=== PATIENT | male | born 1940 | race Caucasian/White ===

== ENCOUNTER → 2017-07-23 | Outpatient (CLI) | payer OTHER, MEDICARE ==
[~2017-07-23] MED LIST: ACETAMINOPHEN325 M1 PO; B-12500 MCG PO; BACTRIM 400-801 EACH PO; CELLCEPT500 MG PO; FOLIC ACID 1 MG1 M1 PO; HYDROCODON-ACE1 EAC7 PO; LIPITOR40 MG PO; LOPRESSOR 50 MG50 M1 PO; MAGNESIUM GLUC500 M1 PO; NORVASC 5 MG TAB5 MG PO; PEPCID40 MG PO; PREDNISONE 5 MG5 MG PO; PROGRAF1 MG PO; VITAMIN B-625 MG PO
== END ==
LOC: MRI 09:22
DX: G45.9 Transient cerebral ischemic attack, unspecified (principal); J84.10 Pulmonary fibrosis, unspecified; R42 Dizziness and giddiness

== ENCOUNTER → 2017-10-11 | Outpatient (CLI) | payer OTHER, MEDICARE ==
[~2017-10-11] MED LIST changes: +LOPRESSOR50 PO; +PLAVIX 75 MG TA75 M1 PO
[2017-10-11 10:08] LABS: CREATININE 1.6 mg/dL (0.7-1.3)
== END ==
LOC: LABMALL 09:33
PROVIDERS: Surgery
DX: I71.4 Abdominal aortic aneurysm, without rupture (principal); I70.1 Atherosclerosis of renal artery; Z85.828 Personal history of other malignant neoplasm of skin

== ENCOUNTER 2017-11-18 11:14 | Inpatient (IN) | payer OTHER, MEDICARE ==
[~2017-11-18] VITALS: Ht 170.2 cm; Wt 91.6 kg
--- NOTE | ~2017-11-18 | EKG ---
[place] [address] [facility] [place] [address] ELECTROCARDIOGRAM REPORT Name: TEJAL MITCHELL Room #: 209-[facility] IN M.R.#: [id number] Admission: 11/18/17 Attend Phys: Krishan Villasenor MD Discharge: 11/21/17 Date of : 38 Report #: [id number] THIS REPORT FOR: //name// [facility] Test Date: 2017-11-20 Test Time: 22:11:18 Pat Name: TEJAL MITCHELL Department: Room: 209 P Gender: M Porter Baggage: mfra : 1940 Requested By: Trell Garrett Order Number: [id number] MD: Cristopher Xiao Measurements Intervals [place] Rate: 80 P: 44 AR: 178 QRS: 28 QRSD: 97 T: -5 QT: 385 QTc: 445 Interpretive Statements Sinus rhythm Nonspecific ST segment abnormality Compared to ECG 02/20/2012 06:34:33 No significant change was found Electronically Signed On 11-21-2017 15:30:37 CURRICULUM SUPERVISOR by Cristopher Xiao [email or web address] <ELECTRONICALLY SIGNED> By: Cristopher Xiao MD, [facility] 11/21/17 153 10 10 Cristopher Xiao MD, [facility] /EPI
--- NOTE | ~2017-11-18 | EKG ---
[place] [address] [facility] [place] [address] ELECTROCARDIOGRAM REPORT Name: TEJAL MITCHELL Room #: 209-[facility] IN M.R.#: [id number] Admission: 11/18/17 Attend Phys: Krishan Villasenor MD Discharge: 11/21/17 Date of : 39 Report #: [id number] THIS REPORT FOR: //name// [facility] Test Date: 2017-11-19 Test Time: 18:01:54 Pat Name: TEJAL MITCHELL Department: Room: 209 P Gender: M Medical Imaging Tech: KAYE : 1940 Requested By: Krishan Villasenor Order Number: [id number] MD: Cristopher Xiao Measurements Intervals [place] Rate: 86 P: 44 [place]: 177 QRS: 26 QRSD: 98 T: -4 QT: 376 QTc: 450 Interpretive Statements Sinus rhythm Ventricular premature complex Compared to ECG 02/20/2012 06:34:33 Ventricular premature complex(es) now present Electronically Signed On 11-21-2017 15:21:31 TUTORING MANAGER by Cristopher Xiao [email or web address] <ELECTRONICALLY SIGNED> By: Cristopher Xiao MD, [facility] 11/21/17 152 00 00 Crisotpher Xiao MD, [facility] /EPI
--- NOTE | ~2017-11-18 | EKG ---
[address] [place] [address] ELECTROCARDIOGRAM REPORT Name: TEJAL MITCHELL Room #: 209-[facility] IN M.R.#: [id number] Admission: 11/18/17 Attend Phys: Krishan Villasenor MD Discharge: 11/21/17 Date of : 39 Report #: [id number] THIS REPORT FOR: //name// [facility] Test Date: 2017-11-19 Test Time: 22:25:44 Pat Name: TEJAL MITCHELL Department: Room: 209 P Gender: M Juke Box Mechanic: mfra : 1940 Requested By: Krishan Villasenor Order Number: [id number] MD: Cristopher Xiao Measurements Intervals [place] Rate: 107 P: 46 TN: 166 QRS: 23 QRSD: 93 T: -22 QT: 353 QTc: 471 Interpretive Statements Sinus tachycardia Borderline repolarization abnormality Compared to ECG 02/20/2012 06:34:33 premature ventricular complexes are no longer present Electronically Signed On 11-21-2017 15:24:15 GUIDANCE SECRETARY by Cristopher Xiao [email or web address] <ELECTRONICALLY SIGNED> By: Cristopher Xiao MD, [facility] 11/21/17 1524 2225 24 Cristopher Xiao MD, [facility] /EPI
--- NOTE | ~2017-11-18 | HC ---
[facility] [place] [address] CONSULTATION Name: TEJAL MITCHELL Room #: 209-[facility]..#: [id number] Admission: 11/18/17 Attend Phys: Krishan Villasenor MD Discharge: 11/21/17 Date of : 39 Report #: [id number] THIS REPORT FOR: //name// CC: Krishan Villasenor DATE OF SERVICE: 11/19/2017 REASON FOR CONSULTATION: Elevated creatinine. HISTORY OF PRESENT ILLNESS: A 77-year-old gentleman, 11 years ago had a left lung transplant for pulmonary fibrosis, idiopathic. Since that time, his creatinine has gradually risen. He is on 3-drug immunosuppression including tacrolimus, mycophenolate, and prednisone. He has had no decreased urinary stream or prostate issues, he knows of no other renal issues at the present time. The patient was admitted at this time with a bright red blood per rectum, he has had several bloody stools, he apparently had an arteriogram, possibly had a coil placed, records are not consistent in the computer with information. PAST MEDICAL HISTORY: Vascular disease, particularly an abdominal aortic aneurysm treated with an abdominal aortic stent, 2 different cardiac stents, he has also had a cholecystectomy and history of hypertension. HOME MEDICATIONS: Include tacrolimus 1 mg b.i.d., mycophenolate 750 mg b.i.d., metoprolol tartrate 50 mg b.i.d., amlodipine 5 mg daily, famotidine 40 mg daily, prednisone 5 mg daily, atorvastatin 40 mg daily, magnesium, and Bactrim-DS 1 daily. ALLERGIES: Reported to LEVOFLOXACIN, PENICILLINS, and QUINOLONES. FAMILY HISTORY: Positive for stroke, COPD and ALS. REVIEW OF SYSTEMS: GENERAL: He has been feeling okay. He apparently is somewhat forgetful. EYES: His vision is okay. ENT: Hearing okay. Swallows okay. No mouth ulcers. ENDOCRINE: No diabetes or thyroid disease. RESPIRATORY: No shortness of breath, hemoptysis, or cough. He does have exertional dyspnea. CARDIAC: No angina. He does get some swelling in his legs. GASTROINTESTINAL: He has got the bloody stool without abdominal pain. GENITOURINARY: Good stream without dysuria, hematuria, or stones. NEUROLOGIC: He has been somewhat forgetful. PSYCHIATRIC: No depression or anxiety. [address] [address] CONSULTATION Name: TEJAL MITCHELL Room #: 209-[facility] IN ..#: [id number] Admission: 11/18/17 Attend Phys: Krishan Villasenor MD Discharge: 11/21/17 Date of : 39 Report #: [id number] PHYSICAL EXAMINATION: GENERAL: This is a reasonably well-appearing gentleman, somewhat forgetful with his history. SKIN: Otherwise, unremarkable. SKELETAL: Well developed, well nourished, nonobese. HEENT: Extraocular movements are full. No scleral icterus. Hearing and vision intact. Mucous membranes are moist. Tongue, buccal mucosa benign. NECK: Supple. No carotid bruits. No lymphadenopathy. CHEST: Shows diminished breath sounds at the bases. HEART: Regular. ABDOMEN: Soft and nontender without bruits, masses, or organomegaly. EXTREMITIES: Show trace peripheral edema. ASSESSMENT: 1. Gastrointestinal bleed, appears to have a lower gastrointestinal bleed. He apparently had some coiling done, it is unclear if they found the source of bleeding or not. 2. 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 Nothing much to be done there. 3. Status post lung transplant, on 3-drug immunosuppression. 4. History of hypertension. 5. Peripheral arterial disease, status post abdominal aortic aneurysm stent. 6. Coronary artery disease, status post percutaneous coronary intervention and coronary stents. <ELECTRONICALLY SIGNED> By: Clyde Abad MD 11/24/17 1127 1011 1230 Clyde Abad MD /nt
--- NOTE | ~2017-11-18 | HC ---
[facility] [place] [address] CONSULTATION Name: TEJAL MITCHELL Room #: 209-P [facility] IN ..#: [id number] Admission: 11/18/17 Attend Phys: Krishan Villasenor MD Discharge: 11/21/17 Date of : 39 Report #: [id number] THIS REPORT FOR: //name// CC: Krishan Villasenor DATE OF SERVICE: 11/20/2017 REASON FOR CONSULTATION: Chest discomfort. HISTORY OF PRESENT ILLNESS: This is a very pleasant patient of Dr. Krishan Villasenor, who presented to the Emergency Room with complaints of rectal bleeding. The patient stated it began on the day of admission and had noticed some hematochezia. He does have a prior history of coronary artery disease and is status post left lung transplant. Upon questioning, he denies any actual anginal symptoms similar to what he had prior to his stenting, but states that he had progressive orthopnea and some PND. He stated that he had some shortness of breath that was the reason that brought him into the Emergency Room to begin with. He denied any significant exertional tightness, heaviness or fullness and in fact stated that up until a week or so ago, he was doing quite well with his daily activities. He is on immunosuppressive therapy for his lung transplant, which he had several years ago. No syncope or near syncope. PAST MEDICAL HISTORY: Significant for: 1. 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 2. Hypertension. 3. Coronary artery disease, status post repeated revascularization. 4. Peripheral vascular disease treated percutaneously. 5. Dyslipidemia. 6. Hypertension. MEDICATIONS: Prograf, CellCept, Lopressor, Norvasc, Pepcid, prednisone, Lipitor, magnesium gluconate, and Bactrim. PAST SURGICAL HISTORY: 1. Left lung transplant in 2006. 2. Coronary stents, multiple times, most recent of which was in 09/2016. 3. Abdominal aortic aneurysm coil placed in 2011. SOCIAL HISTORY: The patient does not smoke or consume alcohol. Does not follow a particular exercise regimen or dietary restriction. ALLERGIES: LEVOFLOXACIN, PENICILLIN, QUINOLONES AND TETANUS TOXOID. LABORATORY DATA: Demonstrates an H and H of 13.3 and 39.7 with a platelet count of 214,000. Troponins are 0.06 and 0.04, in decline. [address] [address] CONSULTATION Name: TEJAL MITCHELL Room #: 209-P [facility] IN [facility].#: [id number] Admission: 11/18/17 Attend Phys: Krishan Villasenor MD Discharge: 11/21/17 Date of : 39 Report #: [id number] Electrocardiogram did not demonstrate any acute findings in a sinus mechanism. REVIEW OF SYSTEMS: Except for symptoms previously mentioned and those commensurate with comorbid state, the 10-point review of system is negative. PHYSICAL EXAMINATION: GENERAL: Well-developed, well-nourished male, resting comfortably, in no acute distress. VITAL SIGNS: Noted in the chart. HEENT: Normocephalic, atraumatic. Pupils are equal, round, reactive to light and accommodation. Extraocular muscles are intact. Sclerae and conjunctivae are anicteric. NECK: JVD is normal. Carotid upstrokes are bilaterally symmetrical. No bruits are heard. No thyromegaly. No lymphadenopathy. LUNGS: Demonstrates prolongation of the expiratory phase with end-expiratory wheezes noted. CARDIAC: Demonstrates a regular rhythm. Soft systolic murmur at the apex. No diastolic murmurs are noted. ABDOMEN: Soft, nontender, nondistended. Normal bowel sounds. EXTREMITIES: Without cyanosis, clubbing or edema. Distal pulses are intact. DTR symmetrical. NEUROLOGIC: Cranial nerves 2-12 are grossly normal and symmetrical. PSYCHIATRIC: Alert, oriented with normal affect. SKIN: Warm and dry. IMPRESSION: 1. Dyspnea and orthopnea, multifactorial. He is having some renal issues apparently. There may have been some degree of congestion present. He is currently much improved, although he not diuresed dramatically. I would continue with and multifactorial source of his symptomatology. 2. Coronary artery disease. No real angina. Currently, troponins are decreasing. ECG does not show acute current of injury and in view of this, I am going to just monitor and observe for the present time. 3. Hypertension seems to be adequately controlled on current regimen. Continue to monitor. 4. Peripheral vascular disease, stable. 5. Dyslipidemia. Discussed the [place] [employer] step 1 diet with him. He does voice understanding. We will need to get him copies of the handout at discharge, so we can incorporate that into his daily dietary habits. <ELECTRONICALLY SIGNED> By: Trell Garrett MD 11/26/17 1118 1432 52 Trell Garrett MD /nt
[~2017-11-18 11:14] MED LIST changes: -LOPRESSOR50 PO; -PLAVIX 75 MG TA75 M1 PO
[2017-11-18 11:16] VITALS: BP 142/74
[2017-11-18 12:36] LABS: URINE BILIRUBIN NEGATIVE (Negative); URINE BLOOD NEGATIVE (Negative); URINE CLARITY CLEAR; URINE COLOR YELLOW; URINE GLUCOSE-RANDOM* NEGATIVE (Negative); URINE KETONES NEGATIVE (Negative); URINE LEUKOCYTES NEGATIVE (Negative); URINE NITRITE NEGATIVE (Negative); URINE PROTEIN (DIPSTICK) 1+ (Negative); URINE SPECIFIC GRAVITY 1.025 (1.005-1.035); URINE UROBILINOGEN 0.2 E.U./dl (0.2-1.0)
[2017-11-18 12:38] LABS: ABSOLUTE NEUTROPHILS 9.7 thou/uL (1.4-8.2); BASOPHILS 0.5 % (0.0-2.0); EOSINOPHILS 0.9 % (0.0-3.0); HEMATOCRIT 39.7 % (42.0-52.0); HEMOGLOBIN 13.3 gm/dL (14.0-18.0); LYMPHOCYTES 10.8 % (24.0-44.0); MCH 32.9 pg (26.0-34.0); MCHC 33.5 g/dL (28.0-37.0); MCV 98.3 fL (80.0-100.0); MONOCYTES 5.6 % (1.0-8.0); PLATELET COUNT 214 thou/uL (150-400); POLYS 82.2 % (36.0-66.0); RBC 4.03 mil/uL (4.50-6.00); RDW 13.7 % (10.5-14.5); WBC 11.8 thou/uL (4.0-11.0)
[2017-11-18 12:47] LABS: AMORPHOUS URATES Few /LPF (None Seen); BACTERIA 1-9 Few /HPF (None Seen); CRYSTALS None Seen /LPF (None Seen); SQUAMOUS 4-10 Moderate /LPF (0-3); URINE RBC None Seen /HPF (0-2); URINE WBC None Seen /HPF (0-5)
[2017-11-18 12:49] LABS: APTT 25.4 Seconds (24.5-32.8); PROTIME 10.3 Seconds (9.3-11.4)
[2017-11-18 14:40] VITALS: BP 112/48
[2017-11-18 16:05] VITALS: BP 122/66
[2017-11-18] MEDS ORDERED: PLAVIX 75 MG TA75 M1 PO (16:16)
[2017-11-18] MEDS ORDERED: LOPRESSOR50 PO (16:16)
[2017-11-18 16:29] VITALS: BP 167/83
[2017-11-18 17:46] LABS: HEMOGLOBIN 11.7 gm/dL (14.0-18.0)
[2017-11-18 18:02] VITALS: BP 167/83
[2017-11-18 21:00] VITALS: BP 127/67
[2017-11-18 21:49] LABS: HEMATOCRIT 32.8 % (42.0-52.0); HEMOGLOBIN 11.1 gm/dL (14.0-18.0)
[2017-11-18 21:52] LABS: CALCIUM 7.8 mg/dL (8.5-10.1); CREATININE 1.6 mg/dL (0.7-1.3); POTASSIUM 5.3 mmol/L (3.5-5.1)
[2017-11-18 21:58] LABS: ALBUMIN 2.9 g/dL (3.4-5.0); DIRECT BILIRUBIN 0.1 mg/dL (<0.1-0.3); TOTAL BILIRUBIN 0.4 mg/dL (<0.1-1.0); TOTAL PROTEIN 5.7 g/dL (6.4-8.2)
[2017-11-19 00:25] VITALS: BP 128/58
[2017-11-19 03:00] VITALS: BP 120/64
[2017-11-19 06:17] LABS: HEMATOCRIT 27.4 % (42.0-52.0); HEMOGLOBIN 9.3 gm/dL (14.0-18.0); MCH 33.1 pg (26.0-34.0); MCHC 33.9 g/dL (28.0-37.0); MCV 97.8 fL (80.0-100.0); RBC 2.8 mil/uL (4.50-6.00); RDW 13.7 % (10.5-14.5)
[2017-11-19 06:28] LABS: CALCIUM 7.8 mg/dL (8.5-10.1); CREATININE 1.4 mg/dL (0.7-1.3); POTASSIUM 4.5 mmol/L (3.5-5.1)
[2017-11-19 07:03] VITALS: BP 109/62
[2017-11-19 14:20] VITALS: BP 113/68
[2017-11-19 14:41] VITALS: BP 113/668
[2017-11-19 19:45] VITALS: BP 139/85
[2017-11-20 00:09] VITALS: BP 104/52
[2017-11-20 04:37] VITALS: BP 123/79
[2017-11-20 04:51] LABS: ALBUMIN 2.5 g/dL (3.4-5.0); CALCIUM 7.3 mg/dL (8.5-10.1); CREATININE 1.2 mg/dL (0.7-1.3); PHOSPHORUS 2.5 mg/dL (2.5-4.9); POTASSIUM 4.7 mmol/L (3.5-5.1)
[2017-11-20 07:07] VITALS: BP 131/77
[2017-11-20 08:22] LABS: HEMATOCRIT 24.5 % (42.0-52.0); HEMOGLOBIN 8.4 gm/dL (14.0-18.0); MCH 33.6 pg (26.0-34.0); MCHC 34.1 g/dL (28.0-37.0); MCV 98.5 fL (80.0-100.0); RBC 2.49 mil/uL (4.50-6.00); RDW 13.7 % (10.5-14.5); WBC 5.7 thou/uL (4.0-11.0)
[2017-11-20 11:27] VITALS: BP 116/66
[2017-11-20 12:40] LABS: HEMATOCRIT 27.5 % (42.0-52.0); HEMOGLOBIN 9.4 gm/dL (14.0-18.0)
[2017-11-20 14:59] VITALS: BP 122/67
[2017-11-20 20:40] VITALS: BP 146/75
[2017-11-21 02:45] LABS: CALCIUM 7.7 mg/dL (8.5-10.1); CREATININE 1.4 mg/dL (0.7-1.3); PHOSPHORUS 2.3 mg/dL (2.5-4.9); POTASSIUM 4.4 mmol/L (3.5-5.1)
[2017-11-21 04:06] VITALS: BP 123/78
[2017-11-21 08:00] VITALS: BP 122/54
[2017-11-21 08:49] LABS: HEMATOCRIT 25.8 % (42.0-52.0); HEMOGLOBIN 8.8 gm/dL (14.0-18.0); MCH 33.5 pg (26.0-34.0); MCHC 34.2 g/dL (28.0-37.0); RBC 2.63 mil/uL (4.50-6.00); RDW 14.2 % (10.5-14.5); WBC 6.7 thou/uL (4.0-11.0)
[2017-11-21 09:57] VITALS: BP 122/54
== END 2017-11-21 10:51 | disposition home or self-care (01) | DRG 377 ==
LOC: ER 11:14 → 4E 14:33 → EROBS 14:33 → 4E 16:17 → 2N 11-19 20:02
PROVIDERS: Family Medicine; Internal Medicine Gastroenterology; Internal Medicine Nephrology; Nurse Practitioner
PROC: B4151ZZ Fluoroscopy of Inferior Mesenteric Artery using Low Osmolar Contrast (ICD-10-PCS; 2017-11-19)
PROC: 0DJD8ZZ Inspection of Lower Intestinal Tract, Via Natural or Artificial Opening Endoscopic (ICD-10-PCS; principal; 2017-11-20)
DX: K92.2 Gastrointestinal hemorrhage, unspecified (principal); E43 Unspecified severe protein-calorie malnutrition; N17.9 Acute kidney failure, unspecified; Z94.2 Lung transplant status; I25.10 Atherosclerotic heart disease of native coronary artery without angina pectoris; I12.9 Hypertensive chronic kidney disease with stage 1 through stage 4 chronic kidney disease, or unspecified chronic kidney disease; N18.9 Chronic kidney disease, unspecified; I73.9 Peripheral vascular disease, unspecified; E78.5 Hyperlipidemia, unspecified; R06.01 Orthopnea; F03.90 Unspecified dementia, unspecified severity, without behavioral disturbance, psychotic disturbance, mood disturbance, and anxiety; D72.829 Elevated white blood cell count, unspecified; J84.10 Pulmonary fibrosis, unspecified; Z90.49 Acquired absence of other specified parts of digestive tract; Z95.5 Presence of coronary angioplasty implant and graft; Z88.1 Allergy status to other antibiotic agents; Z88.0 Allergy status to penicillin; Z88.8 Allergy status to other drugs, medicaments and biological substances; Z82.3 Family history of stroke; Z83.6 Family history of other diseases of the respiratory system; Z79.899 Other long term (current) drug therapy; Z28.21 Immunization not carried out because of patient refusal
CPT/HCPCS: 10081; 10084

== ENCOUNTER → 2019-03-03 | Outpatient (CLI) | payer OTHER, MEDICARE ==
[~2019-03-03] MED LIST changes: +LOPRESSOR50 PO; +PLAVIX 75 MG TA75 M1 PO
[2019-03-03 13:06] LABS: ABSOLUTE NEUTROPHILS 5.9 thou/uL (1.4-8.2); BASOPHILS 0.8 % (0.0-2.0); EOSINOPHILS 1.1 % (0.0-3.0); HEMOGLOBIN 11.8 gm/dL (14.0-18.0); LYMPHOCYTES 14.6 % (24.0-44.0); MCH 31.6 pg (26.0-34.0); MCHC 32.9 g/dL (28.0-37.0); MCV 96.2 fL (80.0-100.0); MONOCYTES 7.9 % (1.0-8.0); PLATELET COUNT 201 thou/uL (150-400); POLYS 75.6 % (36.0-66.0); RBC 3.74 mil/uL (4.50-6.00); RDW 14.2 % (10.5-14.5); WBC 7.9 thou/uL (4.0-11.0)
[2019-03-03 13:21] LABS: ALBUMIN 3.4 g/dL (3.4-5.0); CALCIUM 8.5 mg/dL (8.5-10.1); POTASSIUM 5.5 mmol/L (3.5-5.1); TOTAL BILIRUBIN 0.3 mg/dL (<0.1-1.0); TOTAL PROTEIN 6.6 g/dL (6.4-8.2)
== END ==
LOC: RAD 12:34
PROVIDERS: Family Medicine
DX: J84.9 Interstitial pulmonary disease, unspecified (principal); J43.1 Panlobular emphysema; I11.0 Hypertensive heart disease with heart failure; I50.22 Chronic systolic (congestive) heart failure; G89.29 Other chronic pain; M54.5 Low back pain; R53.82 Chronic fatigue, unspecified

== ENCOUNTER 2019-05-02 10:33 | Inpatient (IN) | payer OTHER, MEDICARE ==
[~2019-05-02] VITALS: Ht 172.7 cm; Wt 81.2 kg
[2019-05-02 11:13] VITALS: BP 155/78
[2019-05-02] MEDS ORDERED: TACROLIMUS0.5 MG PO (11:58)
[2019-05-02] MEDS ORDERED: MAGNESIUM GLUCO30 MG PO (11:59)
[2019-05-02] MEDS ORDERED: VITAMIN B-121000 MC3 PO (12:02)
[2019-05-02] MEDS ORDERED: VITAMIN B-6100 MG PO (12:03)
[2019-05-02] MEDS ORDERED: BACTRIM DS TAB1 EACH PO (12:05)
[2019-05-02] MEDS ORDERED: AZITHROMYCIN 2250 MG PO (12:06)
[2019-05-02] MEDS ORDERED: DIGOXIN250 MCG PO (12:07)
[2019-05-02] MEDS ORDERED: ZOLOFT25 MG PO (12:08)
[2019-05-02] MEDS ORDERED: KEFLEX500 M1 PO (12:12)
[2019-05-02 15:20] LABS: HEMOGLOBIN 10.3 gm/dL (14.0-18.0); MCH 32.4 pg (26.0-34.0); MCHC 33.2 g/dL (28.0-37.0); MCV 97.5 fL (80.0-100.0); RBC 3.18 mil/uL (4.50-6.00); RDW 14.8 % (10.5-14.5); WBC 7.1 thou/uL (4.0-11.0)
[2019-05-02 15:35] LABS: ALBUMIN 3.4 g/dL (3.4-5.0); CALCIUM 9.1 mg/dL (8.5-10.1); CREATININE 2.2 mg/dL (0.7-1.3); POTASSIUM 4.8 mmol/L (3.5-5.1); TOTAL BILIRUBIN 0.5 mg/dL (<0.1-1.0); TOTAL PROTEIN 6.9 g/dL (6.4-8.2)
[2019-05-02 15:36] VITALS: BP 122/82
--- NOTE | 2019-05-02 19:46 | NUR ---
Patient direct admission from Dr. Villasenor's office approx. 11 am this morning. Patient has dementia and is only oriented to person. signed all consents including form stating hospital telemetry concerns. DPOA and Advance directive paperwork are photocopied and in the physical chart. Dr. Villasenor reminded to put a code status order in this afternoon. An order was obtained today for full code as the patient's said she would like all measures taken. An order also obtained that no IV was necessary. Patient on 2LNC (baseline) PRN. Patient afib on the monitor. Patient refused to eat dinner. Patient's stated he has lost some weight the past couple months and has had a poor appetite. Fall precautions in place.
[2019-05-02 19:55] VITALS: BP 156/88
[2019-05-02 23:28] VITALS: BP 155/95
[2019-05-03 05:00] VITALS: BP 156/76
--- NOTE | 2019-05-03 06:39 | NUR ---
PATIENT IS PROGRESSING IN HIS CARE PLAN. VITAL SIGNS STABLE WITH PATIENT NOT COMPLAINING, NOR NURSE PERCEIVING, ANY PAIN OR NAUSEA. ORIENTED TO SELF, PATIENT WAS IMPULSIVE BUT RE DIRECTABLE. BREATHING STABLE ON OXYGEN EVIDENCED BY SPOT OXYGENATION CHECKS. CONTROLLED ATRIAL FIB THROUGHOUT SHIFT. NURSE ATTEMPTED TO COLLECT ALL URINE FROM PATIENT ALTHOUGH HE WAS INCONTINENT ONCE. UP MULTIPLE TIMES TO THE BEDSIDE COMMODE WITH ASSISTANCE INCIDENT FREE. CONTINUE PLAN OF CARE.
[2019-05-03 07:43] VITALS: BP 155/105
--- NOTE | 2019-05-03 10:48 | NUR ---
Nutrition: pt admit with bilateral leg weakness, dementia. Seen due to high risk screen for poor intake/weight loss. Spoke mainly with . States weight down 6# or 3% over the course of one year-not significant. Either eats very well or 0% here and at home. Drinks one ensure daily, will offer at lunch so pt can have as snack. Explained menu ordering but reports no preferences and intake varies due to dementia. No wasting observed. Consider low risk.
[2019-05-03 11:20] VITALS: BP 98/72
[2019-05-03 15:00] VITALS: BP 152/67
--- NOTE | 2019-05-03 16:03 | NUR ---
ASSESSMENT: CM REVIEWED CHART AND MET WITH PATIENT AT THE BEDSIDE. PT WAS ADMITTED WITH WEAKNESS/FALLS. PTS WAS ALSO AT THE BEDSIDE. PT LIVES IN A HOUSE WITH HIS . PT HAS A COUPLE STEPS TO ENTER THE HOME AND NO STEPS ONCE INSIDE. PT HAS A WALKER AT HOME BUT REPORTS HE DOES NOT LIKE USING IT AND DOES NOT USE IT ALL THE TIME. PT HAS A WALK-IN SHOWER WITH A BUILT IN BENCH AND GRAB BAR. PT HAS HAD HH IN THE PAST BUT UNSURE THE AGENCY. CM DISCUSSED ROLE AND POSSIBLE RECOMMENDATIONS FOR SNF. PT HAS NOT BEEN TO A SNF IN THE PAST. CM PROVIDED A SNF LIST FOR PATIENT AND TO REVIEW. CM WILL CONTINUE TO FOLLOW TO ASSIST NEEDED.
--- NOTE | 2019-05-03 17:01 | NUR ---
Assumed care approx. 0700 this AM. Oriented to person, impulsive at times, and forgetful within minutes of directions given. Patient on and off 2LNC per patient comfort. No signifant telemetry changes noted, afib rhythm continues. Nutritional intake is still poor, but the patient's continues to encourage supplement intake. Urine collected for 24 hr lab specimen when available, but patient has been incontinent most of the shift. Patient continues to have lower extremity weakness. Patient unsteady and has a staggering gait at times. Fall precautions in place. Not much progress toward plan of care goals at this time.
[2019-05-03 19:51] VITALS: BP 166/88
[2019-05-04 03:45] VITALS: BP 150/86
--- NOTE | 2019-05-04 06:05 | NUR ---
Pt. very impulsive and keeps getting out of bed. Frequent reorientation given. Assisted up to commode to void then had bm. Snacks given ,got him comfortable but continous to remain impulsive.Bladder scanned and reads 511. Dr. Villasenor notified and order received. He also was informed that 24 hour urine collection needs to be restarted due to episodes of incontinence during the day yesterday. Ramos inserted for retention without difficulty. Urine collection started at 2100 on 05/03/19 and will end 05/04/19 at 2100. Ramos bag kept in ice and bucket kept in ice once ramos bag emptied. Pt. is in afib with controlled rate. O2 at 2L/NC with O2 sat of 100%.No respiratory distress and was able to titrate off O2 this am. Tolearting room air well. Haldol x2 doses given to pt. He remained impulsive despite comfort measures. Pt. gotten up and stayed in recliner chair at the nurse's station. He has been awake all night. He has been calm and pleasant just very impulsive and very forgetful. Will continue to monitor.
[2019-05-04 07:27] VITALS: BP 159/90
[2019-05-04 09:28] LABS: CALCIUM 9.4 mg/dL (8.5-10.1); CREATININE 1.8 mg/dL (0.7-1.3); POTASSIUM 4.7 mmol/L (3.5-5.1)
[2019-05-04 09:31] LABS: APTT 24.7 Seconds (24.5-32.8); PROTIME 10.8 Seconds (9.3-11.4)
[2019-05-04 09:57] LABS: TSH 3.285 uIU/mL (0.358-3.740)
--- NOTE | 2019-05-04 13:11 | NUR ---
ON-GOING ASSESSMENT: CM REVIEWED CHART AND MET WITH PATIENT AND HIS AT THE BEDSIDE TO FURTHER DISCUSS SNF. THEY ARE INTESTED IN [facility]. CM SPOKE WITH [facility] AT [facility] WHO STATES THEY DO NOT CURRENTLY HAVE A BED BUT WILL NOTIFY CM IF ANYTHING CHANGES. REPORTS [facility] IS CLOSER TO THEIR HOME AND WANTED A REFERRAL SENT THERE. CM FAXED REFERRAL AND NOTIFIED LIASON AT [facility].
[2019-05-04 15:01] VITALS: BP 133/71
[2019-05-04 19:11] VITALS: BP 150/85
--- NOTE | 2019-05-04 19:35 | NUR ---
ASSUMED CARE OF PATIENT AT 0715, PATIENT ALERT X 1, CONFUSION , AND VERY IMPULSIVE. PATIENT HAS RIGHT WRIST IV IN PLACE WITH STACEY GURROLA AT 100CC/HR, DR NEWMAN HERE THIS AM, THIS RN CALLED DR NEWMAN WITH [facility]. 1.8, RECEIVED ORDER TO D/C IV FLUIDS. AT BEDSIDE ALL DAY, DUE TO FEAR OF PATIENT FALLING, FALL PRECAUTIONS IN PLACE. IGNACIO CATHETER IN PLACE WITH YELLOW URINE NOTED, 24 HR URINE COLLECTION ENDS TONIGHT AT 2100. SCALP AREA HAS INCISION, WITH CLEAR DRESSING IN PLACE, REPORT INSTRUCTIONS FOR CARE OF SCALP AREA, THIS RN ATTEMPTED TO CLEANSE AREA AND APPLY VASELINE, WANTS TO WAIT UNTIL IN THE AM. PATIENT WORKED WITH PT,ONLY AMBULATED FROM BED TO CHAIR, PATIENT SIT UP MOST OF THE DAY. DECIDED TO SEND PATIENT TO REHAB TOMORROW. WILL CONTINUE TO MONITOR. REPORTS NO HALDOL TONIGHT, REPORT TO TEJAL/RN. WILL CONTINUE TO MONITOR.
[2019-05-05 03:35] VITALS: BP 130/77
--- NOTE | 2019-05-05 04:17 | NUR ---
PATIENT IS PROGRESSING SLOWLY IN HIS CARE PLAN. VITAL SIGNS STABLE WITH PATIENT NOT COMPLAINING, NOR NURSE PERCEIVING, ANY PAIN OR NAUSEA. ORIENTED TO SELF AND HIGHLY IMPULSIVE, PATIENT IS UNABLE TO CALL FOR NEEDS. NURSE MADE SURE TO ROUND AND OBSERVE FREQUENTLY. BREATHING STABLE ON LOW DOSE OXYGEN EVIDENCED BY SPOT OXYGENATION CHECKS. UP MULTIPLE TIMES WITH ASSISTANCE INCIDENT FREE. PATIENTS FAMILY ANXIOUS FOR DISCHARGE TO FACILITY SOON. CONTINUE PLAN OF CARE.
[2019-05-05 07:12] VITALS: BP 155/92
[2019-05-05] MEDS ORDERED: LANOXIN 0.250.25 M1 PO (12:32)
--- NOTE | 2019-05-05 13:42 | NUR ---
ON-GOING assessment: CM REVIEWED CHART AND MET WITH PATIENT AND AT THE BEDSIDE. THEY [facility] AND CM SPOKE WITH LIASON WHO STATES THEY CAN ACCEPT PATIENT TODAY. CM [facility] AND CONFIRMED THEY RECEIVED IT. CHART COPY WAS ORDERED. TRANSPORTATION IS BEING ARRANGED VIA [facility]. CHOICE OF [facility] COMPLETED.
[2019-05-05] MEDS ORDERED: FLOMAX0.4 MG PO (14:21)
--- NOTE | 2019-05-05 15:15 | NUR ---
ASSESSMENT CHARTED. PT ALERT AND ORIENTED WITH FORGETFULNESS. VSS. DENIED HAVING PAIN OR DISCOMFORT. SEEN BY DR AGUILAR. ORDERS GIVEN TO DISCHARGE PT TO SNF. ORDERS TO KEEP IGNACIO IN PLACE AND VOINDING TRIAL IN 1 WEEK AT THE FACILITY. NOTIFIED.
[2019-05-06 11:10] LABS: URINE MAGNESIUM-mg/dl 2.4 mg/dL (Not Estab.)
[2019-05-07 06:35] LABS: COLLECTION DURATION 24 hours; TOTAL VOLUME 2250 mL
--- NOTE | 2019-05-10 08:40 | HC ---
[facility] [place] [address] CONSULTATION Name: TEJAL MITCHELL Room #: 351-P [facility] IN ..#: [id number] Admission: 05/02/19 ������������������ Attend Phys: Krishan Villasenor MD Discharge: 05/05/19 ������������������ Date of : 39 Report #: [id number] THIS REPORT FOR: //name// CC: Krishan Villasenor DATE OF SERVICE: 05/03/2019 HISTORY OF PRESENT ILLNESS: This is an 79-year-old male patient who was evaluated by me for ambulation difficulty as well as dementia. It looks like the patient's dementia started about couple of years ago. It has progressed. He typically does not remember details about anything, but one time, he could not even remember his . He usually does not know the month and the date. He also has developed some ambulation difficulty. I reviewed the records on this patient. This patient had an MRI in the past and that demonstrated according to the report, finding consistent with amyloid angiopathy. The thinks the patient has deteriorated further recently. His MRI/MRA were unremarkable. The provides 24-hour supervision. REVIEW OF SYSTEMS: Positive for dementia. He is developing some tremor that is also becoming worse. He apparently also has a history of GI bleed. He has a history of heart surgery and lung transplant. He was recently diagnosed with squamous cell carcinoma. They checked him for any metastasis and he was not found to have any. One of the records indicate some atrial fibrillation, but EKG indicate that he is in sinus rhythm. That was his relevant 14-point review of system. PAST MEDICAL HISTORY: Positive for dementia and now ambulation difficulty. FAMILY HISTORY: Unremarkable. SOCIAL HISTORY: The patient has a history of smoking, but does not smoke now. PHYSICAL EXAMINATION: Indicate he is alert. He is responsive. He can follow simple commands. He could not tell me what month it is, but he knew what hospital he was in. His memory is very poor. Cranial nerve examination II through XII looks mostly unremarkable. He moves all four extremities. His reflexes are present. He does have some tremor. I could not look at his fundus. There is no meningeal sign in this patient. Cardiac examinations appear unremarkable. No respiratory difficulty was noticed. IMPRESSION: This patient has finding consistent with amyloid angiopathy on the last MRI. if that is what he has unfortunately there is nothing much can be done and it will be desirable to continue very conservative care in this patient. However, the patient with amyloid angiopathy. Sometime can have a [facility] [address] [place] [address] CONSULTATION Name: TEJAL MITCHELL Room #: 351-P [facility]#: [id number] Admission: 05/02/19 ������������������ Attend Phys: Kirshan Villasenor MD Discharge: 05/05/19 ������������������ Date of : 39 Report #: [id number] large bleed also. So it will be desirable to repeat the MRI to make sure that is not what happened 2 months ago or is happening now. I will also do a PT, PTT in this patient. I discussed with the patient's that they need to decide how aggressive they want to be. If second MRI demonstrates finding consistent with amyloid angiopathy. My suggestion will be to be very conservative in this patient's care and may be considered comfort measure only. Time spent about 50 minutes, more than half the time counseling and coordinating. I ordered the MRI and some blood workup and we will look at. ��������������������������������������������� <ELECTRONICALLY SIGNED> ���������������������������������������� By: Gabriel Russell MD ��������������������������������������������� 05/10/19 0840 0941 [id number] Gabriel Russell MD /nt
== END 2019-05-05 15:23 | DRG 683 ==
LOC: 3W 10:33
PROVIDERS: Psychiatry & Neurology Neuromuscular Medicine; ADMIT Family Medicine
DX: N17.9 Acute kidney failure, unspecified (principal); Z94.2 Lung transplant status; F03.90 Unspecified dementia, unspecified severity, without behavioral disturbance, psychotic disturbance, mood disturbance, and anxiety; R29.6 Repeated falls; G31.9 Degenerative disease of nervous system, unspecified; I48.91 Unspecified atrial fibrillation; M19.90 Unspecified osteoarthritis, unspecified site; Z88.1 Allergy status to other antibiotic agents; Z88.0 Allergy status to penicillin; Z88.7 Allergy status to serum and vaccine; Z88.8 Allergy status to other drugs, medicaments and biological substances; Z90.49 Acquired absence of other specified parts of digestive tract; Z87.891 Personal history of nicotine dependence; Z95.5 Presence of coronary angioplasty implant and graft; E86.0 Dehydration
CPT/HCPCS: 10779; 10879

== ENCOUNTER 2019-07-28 13:34 | Inpatient (IN) | payer OTHER, MEDICARE ==
[~2019-07-28] VITALS: Ht 172.7 cm; Wt 77.2 kg
[~2019-07-28 13:34] MED LIST changes: +AZITHROMYCIN 2250 MG PO; +BACTRIM DS TAB1 EACH PO; +DIGOXIN125 MCG PO; +DIGOXIN250 MCG PO; +FLOMAX0.4 MG PO; +KEFLEX500 M1 PO; +LANOXIN 0.250.25 M1 PO; +MAGNESIUM BISG500 GM PO; +MAGNESIUM GLUCO30 MG PO; +NORVASC5 MG PO; +PREDNISONE 10 M10 MG PO; +PROGRAF0.5 MG; +PYRIDOXINE HCL50 MG PO; +TACROLIMUS0.5 MG PO; +TACROLIMUS1 MG PO; +VITAMIN B-121000 MC3 PO; +VITAMIN B-12500 MCG PO; +VITAMIN B-6100 MG PO; +ZOLOFT25 MG PO
[2019-07-28 13:36] VITALS: BP 153/89
[2019-07-28 14:01] LABS: URINE BILIRUBIN NEGATIVE (Negative); URINE BLOOD NEGATIVE (Negative); URINE CLARITY CLEAR; URINE COLOR YELLOW; URINE GLUCOSE-RANDOM* NEGATIVE (Negative); URINE KETONES NEGATIVE (Negative); URINE LEUKOCYTES-REFLEX NEGATIVE (Negative); URINE NITRITE-REFLEX NEGATIVE (Negative); URINE PROTEIN (DIPSTICK) 2+ (Negative); URINE SPECIFIC GRAVITY 1.025 (1.005-1.035); URINE UROBILINOGEN 0.2 E.U./dl (0.2-1.0)
[2019-07-28 14:14] LABS: BACTERIA-REFLEX 1-9 Few /HPF (None Seen); CASTS None Seen /LPF (None Seen); CRYSTALS None Seen /LPF (None Seen); SQUAMOUS None Seen /LPF (0-3); URINE RBC None Seen /HPF (0-2); URINE WBC-REFLEX 0-5 Rare /HPF (0-5)
[2019-07-28 15:04] LABS: HEMATOCRIT 32.4 % (42.0-52.0); HEMOGLOBIN 10.3 gm/dL (14.0-18.0); MCH 31.3 pg (26.0-34.0); MCHC 31.9 g/dL (28.0-37.0); MCV 98.2 fL (80.0-100.0); PLATELET COUNT 261 thou/uL (150-400); RDW 13.9 % (10.5-14.5); WBC 12.7 thou/uL (4.0-11.0)
[2019-07-28 15:14] LABS: CALCIUM 9.5 mg/dL (8.5-10.1); CREATININE 1.7 mg/dL (0.7-1.3); POTASSIUM 4.8 mmol/L (3.5-5.1)
[2019-07-28 15:21] LABS: ALBUMIN 2.4 g/dL (3.4-5.0); TOTAL BILIRUBIN 0.4 mg/dL (<0.1-1.0); TOTAL PROTEIN 6.6 g/dL (6.4-8.2)
[2019-07-28 15:47] LABS: ABSOLUTE NEUTROPHILS 11.6 thou/uL (1.4-8.2)
[2019-07-28 18:00] VITALS: BP 166/73
[2019-07-28 19:51] VITALS: BP 144/70
[2019-07-28 19:52] VITALS: BP 144/70
[2019-07-28] MEDS ORDERED: LIPITOR 10 MG10 M1 PO (21:10)
[2019-07-28] MEDS ORDERED: Magnesium gluconate PO (21:18)
[2019-07-28] MEDS ORDERED: TAMSULOSIN HCL0.4 MG PO (21:25)
[2019-07-28 23:40] VITALS: BP 118/70
[2019-07-29 03:18] VITALS: BP 121/68
--- NOTE | 2019-07-29 03:24 | NUR ---
Arrived from ER around 1949 accompanied by and grandson. Able to answer orientation questions and signed consent. Meds verified with . Tolerating room air well. Pt. stated he uses O2 at home 2L/NC on a prn basis but no need for O2 at this time. He slept fair during the night. Forgetful once he woke up but easily reoriented. Afebrile. Voiding per urinal a little at a time. mentioned earlier that's what he does at home at HS. Bed alarm on for safety and SCD's on for DVT prophylaxis. Will continue to monitor.
[2019-07-29 07:53] VITALS: BP 147/82
[2019-07-29] MEDS ORDERED: CEFDINIR300 MG PO (09:14)
[2019-07-29 10:32] LABS: HEMATOCRIT 28.8 % (42.0-52.0); HEMOGLOBIN 9.3 gm/dL (14.0-18.0); MCH 31.9 pg (26.0-34.0); MCHC 32.3 g/dL (28.0-37.0); RBC 2.91 mil/uL (4.50-6.00); RDW 14.2 % (10.5-14.5); WBC 11.2 thou/uL (4.0-11.0)
[2019-07-29 10:42] LABS: CALCIUM 8.5 mg/dL (8.5-10.1); CREATININE 1.7 mg/dL (0.7-1.3); POTASSIUM 5.4 mmol/L (3.5-5.1)
--- NOTE | 2019-07-29 11:03 | EKG ---
[place] [address] [facility] [place] [address] ELECTROCARDIOGRAM REPORT Name: TEJAL MITCHELL Room #: 354-P ADM IN M.R.#: [id number] Admission: 07/28/19 Attend Phys: Krishan Villasenor MD Discharge: Date of : 38 Report #: [id number] THIS REPORT FOR: //name// [facility] ED Test Date: 2019-07-28 Test Time: 13:43:35 Pat Name: TEJAL MITCHELL Department: Room: 354 P Gender: M Taxicab Driver: arcenio : [id number] Requested By: Krishan Villasenor Order Number: [id number] MD: Cristopher Xiao Measurements Intervals [place] Rate: 99 P: MS: QRS: 51 QRSD: 111 T: 11 QT: 326 QTc: 419 Interpretive Statements Atrial fibrillation Anteroseptal infarct, age indeterminate Baseline wander in lead(s) V2,V4 No previous ECG available for comparison Electronically Signed On 07-29-2019 11:03:06 CDT by Cristopher Xiao [email or web address] <ELECTRONICALLY SIGNED> By: Cristopher Xiao MD, [facility] 07/29/19 1103 1343 42 Cristopher Xiao MD, [facility] /EPI
[2019-07-29 15:27] VITALS: BP 116/76
[2019-07-29 16:41] VITALS: BP 116/76
== END 2019-07-29 17:25 | disposition home or self-care (01) | DRG 871 ==
LOC: ER 13:34 → 3W 15:35 → EROBS 15:35 → 3W 19:15
PROVIDERS: Physician Assistant; ADMIT Family Medicine
DX: A41.9 Sepsis, unspecified organism (principal); J18.9 Pneumonia, unspecified organism; I48.20 Chronic atrial fibrillation, unspecified; N17.9 Acute kidney failure, unspecified; Z94.2 Lung transplant status; F03.90 Unspecified dementia, unspecified severity, without behavioral disturbance, psychotic disturbance, mood disturbance, and anxiety; J84.112 Idiopathic pulmonary fibrosis; I10 Essential (primary) hypertension; Z87.440 Personal history of urinary (tract) infections; Z79.899 Other long term (current) drug therapy; Z88.0 Allergy status to penicillin; Z88.8 Allergy status to other drugs, medicaments and biological substances; Z87.891 Personal history of nicotine dependence
CPT/HCPCS: 10879